=== PATIENT | female | born 1970 | race Caucasian/White ===

== ENCOUNTER 2019-09-11 13:20 | Outpatient (CLI) | payer MEDICAID, SELFPAY ==
--- NOTE | 2019-09-11 13:25 | MM_ITS ---
WS: [id number] BILATERAL DIGITAL SCREENING MAMMOGRAPHY WITH CAD CLINICAL INFORMATION: SCREENING HISTORY: Screening mammogram. No current complaints. COMPARISON: None. TECHNIQUE: Bilateral CC and MLO views. FINDINGS: Scattered fibroglandular densities bilaterally. Lucent centered calcifications. No suspicious focal m ass, asymmetry, calcifications, or architectural distortion. No evidence of malignancy. MM/[id number] IMPRESSION: BI-RADS: 2-Benign FOLLOW UP: 1 Year Follow-up Recommend return to annual screening mammography.
== END 2019-09-11 13:21 | disposition home or self-care (01) ==
LOC: RADSHAW 13:23
PROVIDERS: Family Provider Internal Medicine; PCP Internal Medicine; Visit Provider Internal Medicine
DX: Z12.31 Encounter for screening mammogram for malignant neoplasm of breast (principal)
CPT/HCPCS: 77067